=== PATIENT | male | born 1975 | race Caucasian/White ===

== ENCOUNTER 2020-02-10 10:49 | Emergency (ER) | payer SELFPAY ==
[~2020-02-10] VITALS: Ht 149.9 cm; Wt 70.3 kg
[2020-02-10 11:01] VITALS: BP 142/90
--- NOTE | 2020-02-10 11:15 | NUR ---
Patient presents to the ER and requesting covid-19 test he states throat feel discomfort and subjective fever for 4 days. Denies any other symptoms. Pt is A&OX4. LUNGS ARE CLEAR; HR EVEN AND REGULAR; PT DENIES ANY FEVER, CP, SOB, OR COUGH AT THIS TIME; PATIENT STATES PAIN OF 6/10 AT THIS TIME; VSS; MILD ERYTHEMA ON THROAT NOTICED ON INSPECTION. PATIENT POSITIONED FOR COMFORT; HOB ELEVATED; BEDRAILS UP X1; BED DOWN. ER MD MADE AWARE OF PT STATUS.
--- NOTE | 2020-02-10 12:11 | NUR ---
STREP THROAT AND THROAT CULTURE SWABS OBTAINED AND SENT TO THE LAB.
--- NOTE | 2020-02-10 12:55 | NUR ---
PATIENT AMBULATED FROM THE BATHROOM TO ROOM 1 WITH STEADY GAIT.
[2020-02-10 13:14] VITALS: BP 128/80
--- NOTE | 2020-02-10 13:15 | NUR ---
Patient discharged with v/s stable. Written and verbal after care instructions given and explained. Patient alert, oriented and verbalized understanding of instructions. Ambulatory with steady gait. All questions addressed prior to discharge. ID band removed. Patient advised to follow up with PMD. Rx of Motrin 600mg given. Patient educated on indication of medication including possible reaction and side effects. Opportunity to ask questions provided and answered.
== END 2020-02-10 13:15 | disposition home or self-care (01) ==
LOC: EEVIPCON 10:49 → MED 10:49
DX: J02.9 Acute pharyngitis, unspecified (principal)
CPT/HCPCS: 87081; 99283